=== PATIENT | female | born 1955 | race Caucasian/White ===

== ENCOUNTER → 2024-02-16 07:44 | Outpatient (REF) | payer MEDICARE, OTHER, SELFPAY | LOC: HWRAD 07:44 | PROVIDERS: ATTENDING PHYSICIAN Family Medicine | DX: M81.0 Age-related osteoporosis without current pathological fracture (principal) | CPT/HCPCS: 77080 ==

== ENCOUNTER → 2024-07-29 06:38 | Outpatient (REF) | payer MEDICARE, OTHER, SELFPAY | LOC: HWRAD 06:38 | PROVIDERS: ATTENDING PHYSICIAN Family Medicine | DX: E04.1 Nontoxic single thyroid nodule (principal) | CPT/HCPCS: 76536 ==

== ENCOUNTER → 2024-11-03 13:50 | Outpatient (REF) | payer MEDICARE, OTHER, SELFPAY | LOC: WDC 13:50 | PROVIDERS: ATTENDING PHYSICIAN Family Medicine | DX: Z12.31 Encounter for screening mammogram for malignant neoplasm of breast (principal) | CPT/HCPCS: 77063; 77067 ==

== ENCOUNTER 2025-01-04 17:47 | Inpatient (IN) | payer MEDICARE, OTHER, SELFPAY ==
[2025-01-04] VITALS (8 sets, daily range): BP systolic 111–146; BP diastolic 53–92; BMI 23.4
--- NOTE | 2025-01-04 12:49 | EDRN ---
two pillows propped up underneath the pts left leg, the pt states that this helps her pain, awaiting for the provider to see the pt
--- NOTE | 2025-01-04 13:25 | ED.GENMED ---
History of Present Illness
General
Chief Complaint: Fall
Time Seen by Provider: 01/04/25 12:46
History of Present Illness
History of Present Illness:
69-year-old female with history of hypertension presenting to the emergency department after a fall. Patient reports she was unloading groceries into her driveway and slipped on the pavement. She landed on her left hip with subsequent pain. She
has since been unable to bear weight. Denies head injury or loss of consciousness. Denies any additional injuries from the fall. She is not on any blood thinners. She did not have any medications for pain prior to arrival. Denies any
presyncopal symptoms such as chest pain, difficulty breathing, lightheadedness. Denies additional acute medical complaints
Phy Exam
Physical Exam
Physical Exam:
General: Well-appearing, no clinical signs of dehydration, nontoxic and in no acute distress
HEENT: protecting airway
Neck: appears supple, no midline cervical tenderness
CV: Normal heart rate, regular rhythm
Resp: No accessory muscle use, no increased work of breathing, lungs clear to auscultation bilaterally
Abd: Soft and non-distended, no tenderness to palpation
Extremities: No deformities, tenderness to the left hip joint posteriorly. Limited range of motion secondary to pain. Distal sensation and pulses intact
Neuro: alert, no focal neurologic deficit
: deferred
Rectal: deferred
Psych: Normal affect
Skin: Intact
Course
Orders/Labs/Results
Orders:
Orders
01/04/25 13:23
Hip, Left 2-3 Views [CR Hip - LT w/wo Pel 2-3 Vw*] Urgent
Comment:
Reason For Exam: fall, pain
Include a pelvis x-ray?: Yes
01/04/25 13:25
Ketorolac [Toradol] 15 mg IV NOW STA
01/04/25 14:46
CT Pelvis W/o Iv Contrast Urgent
Comment:
Reason For Exam: suspected L-hip fx
Vital Signs
Initial and Last Documented VS:
Initial Vital Signs
Resp
16
01/04/25 12:39
Last Documented Vital Signs
Temp Pulse Resp BP Pulse Ox
98.2 F 69 20 111/92 96
01/04/25 15:53 01/04/25 15:53 01/04/25 15:53 01/04/25 15:53 01/04/25 15:53
MDM/Problems Addressed
MDM/Problems Addressed:
69-year-old female presenting to the emergency department after a fall in her driveway, landing on her left hip with subsequent pain. Vital signs are normal.
On exam, patient is resting comfortably, pain currently controlled. Generalized tenderness to left hip joint without significant deformity or swelling. Distal sensation and pulses intact without concern for neurovascular compromise. Suspect
possible fracture with lower suspicion for dislocation. Will plan for x-ray imaging. No additional findings of traumatic injuries on exam. Patient hemodynamically stable
16:00-x-ray and CT obtained, consistent with a nondisplaced intratrochanteric fracture. Plan for admission. Orthopedics made aware
*Critical Care Note
Total Time (30-74mins, 75-104mins- exclusive of procedures): Not Applicable
ED Attending Note
-
Portions of this chart may have been created with voice recognition software.� Occasional wrong word or��sound alike� substitutions may have occurred due to the inherent limitations of voice recognition software.
Discharge Plan
Departure
Prescriptions:
No Action
multivitamin 1 EACH tablet
1 ea PO DAILY
Referrals:
Fely Winston PA [Family Provider] -
Interventions
Interventions:
*Risk Screen - Suicide Last Done: 01/04/25 12:39
*General Assessment Last Done: 01/04/25 12:39
*Neglect/Abuse Screening Last Done: 01/04/25 12:39
ED- Fall Risk Assessment Last Done: 01/04/25 12:48
*ED COVID-19 Vaccine History Last Done: 01/04/25 12:48
ED-Musculoskeletal Assessment Last Done: 01/04/25 12:48
ED- Neurological Assessment Last Done: 01/04/25 12:48
ED-Skin Assessment Last Done: 01/04/25 12:48
Discharge Date and Time
Print Language: ANGUILLAN
[2025-01-04] MEDS: TORADOL 15 MG IV (13:28)
[2025-01-04] MEDS: MORPHINE SULFATE 2 MG IV ×2 (16:29→21:38)
[2025-01-04 16:48] LABS: % Basophils 0.3 % (0-2); % Eosinophils 0.2 % (0-6); % Immature Granulocytes 0.8 % (0-0.5); % Lymphocytes 5.4 % (20.5-51.1); % Monocytes 4.6 % (1.7-9.3); % Neutrophils 88.7 % (42.2-75.2); Absolute Immature Granulocytes 0.1 10^3/uL (0-0.05); Absolute Lymphocytes 0.9 10^3/uL (1.2-3.4); Absolute Monocytes 0.7 10^3/uL (0.1-0.6); Hematocrit 36.6 % (37.0-47.0); Hemoglobin 11.5 g/dL (12.0-16.0); Mean Corp Hgb Conc. 31.4 g/dL (33.0-37.0); Mean Corpuscular Hgb 18.8 pg (27.0-31.0); Mean Corpuscular Volume 59.8 fL (81.0-99.0); Mean Platelet Volume 9.4 fL (7.4-10.4); Nucleated Red Blood Cells % 0.1 %; Platelet Count 243 10^3/uL (130-400); Red Blood Cell Count 6.12 10^6/uL (4.20-5.40); Red Cell Dist. Width 17.8 % (11.5-14.5); White Blood Cell Count 15.8 10^3/uL (4.8-10.8)
[2025-01-04 16:51] LABS: INR 1.03; PT 13.8 Sec (11.4-14.6)
[2025-01-04 16:52] LABS: APTT 26.7 Sec (23.4-35.0)
--- NOTE | 2025-01-04 16:54 | EDRN ---
surgery currently at the pts bedside
--- NOTE | 2025-01-04 17:04 | CON.ORTHO ---
Consultation - Orthopedics
History
HPI: 69-year-old female presented to the emergency department status post mechanical fall on ice this afternoon with complaints of left hip pain and inability to bear weight. She was subsequently diagnosed with a minimally displaced left
intertrochanteric femur fracture. She was admitted to the hospital service. Orthopedics was consulted for further evaluation and treatment. Patient's accompanied by at bedside. She reports that she slept outside her home on some ice fell
immediate pain inability to bear weight left hip. She reports that she is quite active at baseline does not use any ambulatory aids.
Allergies / Home Medications
Past medical history: Hypertension
Past surgical history: None documented
Family history: Not pertinent
Social history: Non-smoker, lives independently at home with
Allergy/AdvReac Type Severity Reaction Status Date / Time
NKA - No Known Allergies Allergy Unknown Unknown Uncoded 01/04/25 12:38
�Medication �Instructions �Recorded
multivitamin 1 ea PO DAILY 02/24/19
albuterol sulfate 90 mcg/actuation 2 puff inhalation R Q6HPRN PRN 01/04/25
aerosol inhaler sob/wheezing
amlodipine 5 mg tablet 5 mg PO QPM 01/04/25
calcium carbonate 600 mg PO DAILY 01/04/25
carboxymethylcellulose sodium 0.25 1 drp BOTH EYES BID 01/04/25
% eye drops (TheraTears)
escitalopram oxalate 5 mg tablet 5 mg PO DAILY 01/04/25
loratadine 10 mg tablet (Claritin) 10 mg PO DAILY 01/04/25
nebivolol 5 mg tablet (Bystolic) 5 mg PO DAILY 01/04/25
omega 9-ekz-jvx-fish oil 900 1 cap PO DAILY 01/04/25
mg-1,400 mg capsule,delayed release
red yeast rice 600 mg tablet 600 mg PO BID 01/04/25
sodium chloride 5 % eye drops 1 drp BOTH EYES BID 01/04/25
(Vandana 128)
Vital Signs / Lab Results
Temp Pulse Resp BP Pulse Ox
98.2 F 69 20 111/92 96
01/04/25 15:53 01/04/25 15:53 01/04/25 15:53 01/04/25 15:53 01/04/25 15:53
01/04/25 16:33
10 point review systems reviewed and negative unless otherwise stated
General: Pleasant, no acute distress at rest supine in bed
Musculoskeletal left lower extremity
Skin intact, no erythema or ecchymotic staining
Extremity shortened externally rotated
Tenderness palpation over groin or lateral trochanteric flare
No palpable ipsilateral knee effusion
Positive EHL, FHL, ankle dorsiflexion, plantarflexion
Brisk cap refill distally
No other areas of crepitus or tenderness palpation over long bones or joints on tertiary examination
Diagnostic studies
X-rays CT scan left hip reviewed by myself. There is evidence of a minimally displaced left intertrochanteric femur fracture
Assessment / Plan
69-year-old female status post mechanical fall with left intertrochanteric femur fracture. I do long and detailed discussion the patient as well as her regarding diagnosis and treatment options. We discussed both surgical nonsurgical
options. After discussion mutually elected proceed with surgical intervention in the form of left cephalomedullary nail fixation of intertrochanteric femur fracture. We discussed risks benefits and alternatives to surgery. Discussed the usual
expected perioperative postoperative course. After discussion verbal consent was obtained. Written informed consent will be obtained prior to operative intervention
Nonweightbearing left lower extremity
PT OT deferred until postoperative setting
Pain control
Please hold DVT prophylaxis in preparation for or tomorrow
N.p.o. at midnight
Medical management per primary team
Plan: 2 OR tomorrow for operative fixation left intertrochanteric femur fracture pending medical clearance and the OR availability
[2025-01-04 17:15] LABS: AST (SGOT) 31 U/L (14-36); Albumin 4.7 g/dl (3.5-5.0); Alkaline Phosphatase 81 U/L (38-126); Blood Urea Nitrogen 17 mg/dl (7-17); Calcium 9.1 mg/dl (8.4-10.2); Carbon Dioxide 22 mmol/L (22-30); Chloride 101 mmol/L (98-107); Glucose 172 mg/dl (70-99); Sodium 137 mmol/L (135-145); Total Bilirubin 0.7 mg/dl (0.2-1.3); eGFR > 60.00
[2025-01-04 17:25] LABS: ALT (SGPT) 33 U/L (0-35)
--- NOTE | 2025-01-04 17:26 | HPS.HSE ---
Family Physician
-
Family Physician: Fely Winston
Chief Complaint
-
Fall
History of Present Illness
69 y/o F hx of HTN, presents to ER with Fall. She reports unloading groceries while standing on driveway and slipping onto pavement. She landed on her left hip and immediately felt pain. Unable to bear weight on her LLE. No head injury/LOC. No other
complaints. not on thinners.
in ER, found to have L intratrochanteric fracture and Ortho consulted for OR tomorrow.
Medical History
Past Medical History
Past Medical History: Reports Other (HTN, Anxiety)
Past Surgical History: Reports Gynocological
Social History
Tobacco: Non-smoker
Alcohol: None
Drug: None
Personal:
Living: With Family
Family History
Family History: Not pertinent
Allergies / Home Medications
Allergies reflects when Allergies were last updated in [facility].
Home Medications with original date entered in [facility]
Allergy/Medication List:
Allergies
Allergy/AdvReac Type Severity Reaction Status Date / Time
No Known Allergies Allergy Unverified 01/04/25 17:13
Home Medications
multivitamin 1 ea PO DAILY 02/24/19
albuterol sulfate 90 mcg/actuation aerosol inhaler 2 puff inhalation R Q6HPRN PRN sob/wheezing 01/04/25
amlodipine 5 mg tablet 5 mg PO QPM 01/04/25
calcium carbonate 600 mg PO DAILY 01/04/25
carboxymethylcellulose sodium 0.25 % eye drops (TheraTears) 1 drp BOTH EYES BID 01/04/25
escitalopram oxalate 5 mg tablet 5 mg PO DAILY 01/04/25
loratadine 10 mg tablet (Claritin) 10 mg PO DAILY 01/04/25
nebivolol 5 mg tablet (Bystolic) 5 mg PO DAILY 01/04/25
omega 0-qhx-xga-fish oil 900 mg-1,400 mg capsule,delayed release 1 cap PO DAILY 01/04/25
red yeast rice 600 mg tablet 600 mg PO BID 01/04/25
sodium chloride 5 % eye drops (Vandana 128) 1 drp BOTH EYES BID 01/04/25
Review of Systems
-
A 12 point ROS was completed and negative except as noted: Yes
Psych: Reports No Symptoms
Physical Exam
Vital Signs
Vital Signs
Temp Pulse Resp BP Pulse Ox
98.2 F 69 20 111/92 96
01/04/25 15:53 01/04/25 15:53 01/04/25 15:53 01/04/25 15:53 01/04/25 15:53
Physical Exam
General: No Apparent Distress
HEENT: NormoCephalic and Anicteric
Respiratory: Clear; No Wheezes or Rales
Cardiac: S1/S2 and Regular Rhythm
GI: Soft and Non Tender
Musculoskeletal: Other (tenderness to the left hip joint posteriorly. Limited range of motion secondary to pain. Distal sensation and pulses intact)
Neuro: AO x 3
Hematologic/Lymphatic: No Lymphadenopathy
Psych: Calm
Laboratory Results
-
01/04/25 16:33
01/04/25 16:33
Laboratory Results
PT 13.8 Sec (11.4-14.6) 01/04/25 16:33
INR 1.03 01/04/25 16:33
APTT 26.7 Sec (23.4-35.0) 01/04/25 16:33
Total Bilirubin 0.7 mg/dl (0.2-1.3) 01/04/25 16:33
AST 31 U/L (14-36) 01/04/25 16:33
ALT 33 U/L (0-35) 01/04/25 16:33
Alkaline Phosphatase 81 U/L (38-126) 01/04/25 16:33
Data Reviewed
-
Diagnostic Radiology: Report Reviewed by me
Lab Data: Labs Reviewed by me
Impression/Plan
-
Assessment:
Mechanical fall with traumatic L femur fracture
- CT: acute nondisplaced oblique intertrochanteric fracture of the left femur
- pain control
- Orthopedics consulted; OR tomorrow
Essential HTN
- continue Bystolic AM and continue Norvasc PM
Anxiety
- Lexapro
DVT ppx: SCDs
Code: Full
--- NOTE | 2025-01-04 18:31 | EDRN ---
new linens and draw sheet placed under the pt x2 person assist, the pt stated that she needed to urinate and this RN educated the pt on the use of the pure wick and the pt agreed to use it, pure wick in place
--- NOTE | 2025-01-04 19:56 | PTCARENOTE ---
19:45 pt rec'vd from ER left hip fx. Pt vs, wt taken, c/o left pain with movement, declining pain meds for now. oriented to unit .
[2025-01-04 20:37] LABS: Iron 44 ug/dl (37-170)
[2025-01-04 20:47] LABS: Percent Saturation 14 % (20-50); Total Iron Binding Capacity 313 ug/dl (265-497)
[2025-01-04] MEDS: NORVASC 5 MG PO (21:37)
[2025-01-04] MEDS: REFRESH CELLUVISC GEL 1 DROPS BOTH EYES (21:39)
[2025-01-04] MEDS: MURO 128/ADSORBONAC 5% EYE DROPS 1 DROP BOTH EYES (21:39)
[2025-01-04] MEDS: TYLENOL 650 MG PO (21:40)
[2025-01-04 23:25] LABS: Folate > 20.0 ng/ml (2.76-20); Vitamin B12 526 pg/ml (239-931)
[2025-01-05] VITALS (11 sets, daily range): BP systolic 120–146; BP diastolic 60–76
[2025-01-05] MEDS: TYLENOL 650 MG PO ×5 (00:31→23:49)
[2025-01-05] MEDS: NSS 1000 IV ×2 (00:31→18:30)
[2025-01-05] MEDS: MORPHINE SULFATE 2 MG IV ×2 (04:01→11:18)
[2025-01-05 06:44] LABS: % Basophils 0.2 % (0-2); % Eosinophils 0.1 % (0-6); % Immature Granulocytes 0.5 % (0-0.5); % Lymphocytes 15.7 % (20.5-51.1); % Monocytes 7.2 % (1.7-9.3); % Neutrophils 76.3 % (42.2-75.2); Absolute Immature Granulocytes 0.1 10^3/uL (0-0.05); Absolute Lymphocytes 1.5 10^3/uL (1.2-3.4); Absolute Monocytes 0.7 10^3/uL (0.1-0.6); Absolute Neutrophils 7.2 10^3/uL (1.4-6.5); Hematocrit 37.5 % (37.0-47.0); Hemoglobin 11.5 g/dL (12.0-16.0); Mean Corp Hgb Conc. 30.7 g/dL (33.0-37.0); Mean Corpuscular Hgb 18.5 pg (27.0-31.0); Mean Corpuscular Volume 60.4 fL (81.0-99.0); Mean Platelet Volume 10.6 fL (7.4-10.4); Nucleated Red Blood Cells % 0.2 %; Platelet Count 253 10^3/uL (130-400); Red Blood Cell Count 6.21 10^6/uL (4.20-5.40); Red Cell Dist. Width 18.2 % (11.5-14.5); White Blood Cell Count 9.5 10^3/uL (4.8-10.8)
[2025-01-05 06:45] LABS: Blood Urea Nitrogen 12 mg/dl (7-17); Calcium 8.9 mg/dl (8.4-10.2); Carbon Dioxide 25 mmol/L (22-30); Chloride 102 mmol/L (98-107); Estimated Creatinine Clearance 84 ml/min; Glucose 114 mg/dl (70-99); Sodium 138 mmol/L (135-145); eGFR > 60.00
[2025-01-05] MEDS: MURO 128/ADSORBONAC 5% EYE DROPS 1 DROP BOTH EYES ×2 (08:06→20:39)
[2025-01-05] MEDS: REFRESH CELLUVISC GEL 1 DROPS BOTH EYES ×2 (08:06→20:39)
[2025-01-05] MEDS: BYSTOLIC 5 MG PO (08:06)
[2025-01-05] MEDS: CLARITIN 10 MG PO (08:08)
[2025-01-05] MEDS: THERAGRAN 1 TABLET PO (08:08)
[2025-01-05] MEDS: LEXAPRO 5 MG PO (08:08)
--- NOTE | 2025-01-05 11:03 | W.PN.HOSP.TC ---
Today's Communication/Plan
-
OR today with Orthopedics
Assessment / Plan
Assessment / Plan
Assessment:
Mechanical fall with traumatic L femur fracture
- CT: acute nondisplaced oblique intertrochanteric fracture of the left femur
- pain control
- Orthopedics consulted; OR today
- EKG: NSR. low risk patient for low to intermediate risk procedure. no additional testing indicated.
Essential HTN
- continue Bystolic AM and continue Norvasc PM
Anxiety
- Lexapro
DVT ppx: SCDs
Code: Full
Anticipated Discharge: > 48 hours
Subjective/Interval History
-
Date of Service: January 05, 2025
feels well no complaints
Objective Data
-
Labs:
Laboratory Results
01/05/25
05:27
WBC 9.5
Hgb 11.5 L
Hct 37.5
Plt Count 253
Sodium 138
Potassium 4.0
Chloride 102
Carbon Dioxide 25
BUN 12
Creatinine 0.5 L
Glucose 114 H
Calcium 8.9
Vital Signs:
Vital Signs
Temp Pulse Resp BP Pulse Ox
98.4 F 70 16 144/76 94
01/05/25 07:20 01/05/25 07:20 01/05/25 07:20 01/05/25 07:20 01/05/25 07:20
I&O
01/04/25 01/05/25 01/06/25
06:59 06:59 06:59
Intake Total 960 / 960
Output Total 400 / 400
Balance 560 / 560
Physical Exam
-
General: No Apparent Distress
HEENT: Normocephalic and Atraumatic
Respiratory: Negative Wheezes
Cardiac: Regular Rhythm and S1/S2
GI: Soft and Nontender
Neuro: AO x 3
Hematologic / Lymphatic: No Lymphadenopathy
Psych: Calm
Data Reviewed
-
Total Time Spent with Patient (in minutes): 41
Labs: Labs Reviewed by me
--- NOTE | 2025-01-05 15:43 | CM ---
Met with pt at bedside
Pt reports she lives with her in a 2 story home; 2 steps to enter, FF set-up
Independent at baseline, retired, drives
DME - none
SNF/HH - no past hx
PCP - Fely Winston
Pharm - [facility]
For OR today. Discussed poss dispo needs
Plan - TBD based on PT/OT recs post-op
[2025-01-05] MEDS: TYLENOL PO ×2 (16:09→20:49)
--- NOTE | 2025-01-05 17:37 | OR.RPT ---
Operative Report
Operative Report
Anesthesia Type:
General
Operative Indications:
Left peritrochanteric femur fracture
Operative Findings :
Same predominately basicervical nature, nondisplaced
Complications:
None
Implants:
Wes short gamma nail 125 degrees x 10 mm, 95 mm cephalomedullary lag screw, 32.5 x 5 mm distal interlocking screw
Procedure and Technique:
Insertion left short cephalomedullary nail
INDICATIONS FOR PROCEDURE:
69-year-old patient presented status post mechanical fall. They were subsequently diagnosed with a peritrochanteric femur fracture. Orthopedics was consulted for further evaluation and treatment. After discussion with the patient and family,
the decision was made to proceed with operative intervention in the form of short cephalomedullary nail. A long discussion was had regarding risks and benefits of procedure. Risks include but are not limited to infection, blood loss, damage to
surrounding structures, persistent pain, loss of function, need for repeat surgery, implant cut out, periprosthetic fracture, DVT/PE and adverse risks of anesthesia. Benefits include early mobilization and fracture stabilization. After discussion
written informed consent was obtained.
OPERATIVE PROCEDURE:
The patient was seen and identified in the preoperative holding area. The operative extremity was marked and all questions were addressed with the patient. Patient was taken to the operating room and provided anesthesia by the anesthesia team.
They were placed supine on a radiolucent fracture table. The nonoperative extremity was placed in a scissored position and well padded to the contralateral post of the fracture table. Operative extremity was placed in a well-padded fracture boot.
Biplanar fluoroscopy confirmed appropriate reduction after axial traction, adduction and slight internal rotation of the operative extremity. Operative extremity was then prepped and draped in normal sterile fashion. Timeout was performed again
identifying the operative extremity correctly. Preoperative antibiotics were addressed.
A small incision was made several fingerbreadths proximal to the greater trochanter. Sharp dissection was carried through skin and subcutaneous tissues and deep fascial layers. Guidepin was then inserted under biplanar fluoroscopic guidance
through the tip of the greater trochanter in accordance with the implant's operative technique. This was inserted to a depth just distal to the lesser trochanter. Proximal opening reamer was then utilized. A short cephalomedullary nail was then
inserted to the appropriate depth. Trocar was then inserted through the aiming arm. Sharp dissection was then carried through skin and subcutaneous tissues as well as deep fascial layers for an additional stab incision for the cephalomedullary
screw. Guidewire was inserted through the trocar into the femoral neck and head. Appropriate position was confirmed under biplanar fluoroscopy. Attention was made to minimize the tip apex distance. Measurements were obtained for the
cephalomedullary screw. Cannulated drill was then utilized to the appropriate depth followed by the insertion of cannulated cephalomedullary screw. Appropriate final position of the screw within the confines of the femoral neck and head was
confirmed again on biplanar fluoroscopy. There was noted to be slightly anterior position of the soft medullary lag screw. Given the patient's young age nondisplaced nature of the fracture and good purchase, decision was made to except the
position. Additional trocar was then inserted through the aiming arm for the distal interlocking screw. Sharp dissection was carried through skin, subcutaneous tissues and deep fascial layers. Appropriate length interlocking screw was then
drilled and inserted. Final appropriate positioning was confirmed again on biplanar fluoroscopy. Satisfied with the extent of surgery, wounds were copiously irrigated with normal saline solution and closed in a layered fashion utilizing 0 Vicryl
for deep fascial layer, 2-0 Vicryl for subcu cutaneous layer and magda for skin. Sterile dressings were applied. Anesthesia was reversed and patient was taken to the operating room in a stable condition.
Disposition:
PACU stable condition
[2025-01-05] MEDS: DILAUDID 0.5 MG IV (18:16)
--- NOTE | 2025-01-05 20:00 | PTCARENOTE ---
Pt arrived 1900 in bed from PACU. VSS. 4Lo2 NC. IVF infusing. bed locked and in lowest position. call rankin with in reach.
[2025-01-05] MEDS: ZOFRAN 4 MG IV (20:34)
[2025-01-05] MEDS: NORVASC 5 MG PO (20:38)
[2025-01-05] MEDS: COLACE PO (20:49)
[2025-01-05] MEDS: ANCEF 5 IV (23:49)
[2025-01-06 00:20] LABS: Glucose - Point of Care 201 mg/dl (70-99)
[2025-01-06] MEDS: MORPHINE SULFATE 2 MG IV (00:30)
[2025-01-06 03:40] VITALS: BP 118/64
[2025-01-06] MEDS: NSS 1000 IV (05:24)
[2025-01-06] MEDS: TYLENOL 650 MG PO ×3 (05:25→12:45)
[2025-01-06 06:33] LABS: % Basophils 0.2 % (0-2); % Immature Granulocytes 0.6 % (0-0.5); % Lymphocytes 8.3 % (20.5-51.1); % Monocytes 5.5 % (1.7-9.3); % Neutrophils 85.4 % (42.2-75.2); Absolute Immature Granulocytes 0.1 10^3/uL (0-0.05); Absolute Lymphocytes 0.7 10^3/uL (1.2-3.4); Absolute Monocytes 0.5 10^3/uL (0.1-0.6); Absolute Neutrophils 7.3 10^3/uL (1.4-6.5); Hematocrit 33.1 % (37.0-47.0); Hemoglobin 10.2 g/dL (12.0-16.0); Mean Corp Hgb Conc. 30.8 g/dL (33.0-37.0); Mean Corpuscular Hgb 18.8 pg (27.0-31.0); Mean Corpuscular Volume 61.1 fL (81.0-99.0); Nucleated Red Blood Cells % 0.2 %; Platelet Count 238 10^3/uL (130-400); Red Blood Cell Count 5.42 10^6/uL (4.20-5.40); Red Cell Dist. Width 17.2 % (11.5-14.5); White Blood Cell Count 8.6 10^3/uL (4.8-10.8)
[2025-01-06 06:56] LABS: Blood Urea Nitrogen 15 mg/dl (7-17); Calcium 8.2 mg/dl (8.4-10.2); Carbon Dioxide 20 mmol/L (22-30); Chloride 104 mmol/L (98-107); Estimated Creatinine Clearance 84 ml/min; Glucose 186 mg/dl (70-99); Potassium 4.2 mmol/L (3.5-5.1); Sodium 138 mmol/L (135-145); eGFR > 60.00
--- NOTE | 2025-01-06 07:47 | W.PN.ORTHO ---
Today's Communication / Plan
-
69-year-old female postop day 1 status post left short cephalomedullary nail for peritrochanteric femur fracture doing well
Weightbearing as tolerated left lower extremity
PT OT
Pain control
DVT prophylaxis: Recommend Lovenox renally dosed x 28 days
Medical management per primary team
Plan to follow-up outpatient in 2 to 3 weeks for repeat evaluation
Subjective
.
.:
Patient resting comfortably in bed. She reports that she was able to get to the bathroom about 4 times overnight and ambulate without too much difficulty.
Vital Signs and Labs
.
Vital Signs and Labs:
Lab Results
01/06/25 04:37
01/06/25 04:37
Temp Pulse Resp BP Pulse Ox
98.0 F 79 16 118/64 90
01/06/25 03:40 01/06/25 03:40 01/06/25 03:40 01/06/25 03:40 01/06/25 03:40
PT 13.8 Sec (11.4-14.6) 01/04/25 16:33
INR 1.03 01/04/25 16:33
Physical Exam
-
Musculoskeletal left lower extremity
Minimal bloody drainage on dressings
No palpable ipsilateral knee effusion
Mild to moderate swelling thigh
Positive EHL, FHL, ankle dorsiflexion, plantarflexion
Brisk cap refill
[2025-01-06 07:55] VITALS: BP 126/60
[2025-01-06] MEDS: COLACE 100 MG PO (08:04)
[2025-01-06] MEDS: THERAGRAN 1 TABLET PO (08:04)
[2025-01-06] MEDS: BYSTOLIC 5 MG PO (08:04)
[2025-01-06] MEDS: LEXAPRO 5 MG PO (08:04)
[2025-01-06] MEDS: REFRESH CELLUVISC GEL 1 DROPS BOTH EYES (08:05)
[2025-01-06] MEDS: ROXICODONE 5 MG PO ×2 (08:05→13:21)
[2025-01-06] MEDS: CLARITIN 10 MG PO (08:05)
[2025-01-06] MEDS: LOVENOX 40 MG SC (08:06)
[2025-01-06] MEDS: ANCEF 5 IV (08:07)
[2025-01-06] MEDS: MURO 128/ADSORBONAC 5% EYE DROPS 1 DROP BOTH EYES (08:10)
[2025-01-06 11:30] VITALS: BP 133/61
[2025-01-06 11:45] VITALS: BP 140/47; O2SAT 94
[2025-01-06 12:25] VITALS: BP 140/67; PULSE 75; O2SAT 94
--- NOTE | 2025-01-06 12:53 | W.PN.HOSP.TC ---
Today's Communication/Plan
-
dc home VN
Assessment / Plan
Assessment / Plan
Assessment:
Mechanical fall with traumatic L femur fracture
- CT: acute nondisplaced oblique intertrochanteric fracture of the left femur
- s/p status post left short cephalomedullary nail for peritrochanteric femur fracture 01/05
- OP Ortho f/u
- D/w Dr. Kidd ok for ASA 81mg BID at discharge
- pain control prn (Oxy and Tylenol prn)
Essential HTN
- continue Bystolic AM and continue Norvasc PM
Anxiety
- Lexapro
DVT ppx: SCDs
Code: Full
More than 30 minutes spent in discharge including
Final examination of the patient
Summarizing hospital stay
Instructions for continuing care to all relevant caregivers
Preparation of discharge records, prescriptions, and referral forms
Total time spent (in minutes): 41
Anticipated Discharge: Today
Subjective/Interval History
-
Date of Service: January 06, 2025
resting comfortable no complaints
did well with therapy for home VN dc
Objective Data
-
Labs:
Laboratory Results
01/06/25
04:37
WBC 8.6
Hgb 10.2 L
Hct 33.1 L
Plt Count 238
Sodium 138
Potassium 4.2
Chloride 104
Carbon Dioxide 20 L
BUN 15
Creatinine 0.5 L
Glucose 186 H
Calcium 8.2 L
Vital Signs:
Vital Signs
Temp Pulse Resp BP Pulse Ox
98.5 F 72 16 133/61 97
01/06/25 11:30 01/06/25 11:30 01/06/25 11:30 01/06/25 11:30 01/06/25 11:30
I&O
01/05/25 01/06/25 01/07/25
06:59 06:59 06:59
Intake Total 960 / 960 1679
Output Total 400 / 400
Balance 560 / 560 1679
Physical Exam
-
General: No Apparent Distress
HEENT: Normocephalic and Atraumatic
Respiratory: Negative Wheezes
Cardiac: Regular Rhythm and S1/S2
GI: Soft and Nontender
Musculoskeletal: No Edema
Neuro: AO x 3
Hematologic / Lymphatic: No Lymphadenopathy
Psych: Calm
Data Reviewed
-
Total Time Spent with Patient (in minutes): 42
Labs: Labs Reviewed by me
--- NOTE | 2025-01-06 13:04 | W.DS.TRANS ---
DC Summary - Catcher Helper
-
Discharge Instructions:
Discharge Diagnosis/Procedures traumatic L femur fracture s/p status post left
short cephalo-medullary nail for
peritrochanteric femur fracture 01/05
Diet Regular
Activity As tolerated
Additional Activity Weightbearing as tolerated left lower extremity
Bathing Restrictions None
Other Services PT,OT
Instructions:
Stand-Alone Forms:
Changes to Home Medications: No
Discharge Medications:
DC Medications w/original date entered in [facility]
multivitamin 1 ea PO DAILY 02/24/19
albuterol sulfate 90 mcg/actuation aerosol inhaler 2 puff inhalation R Q6HPRN PRN sob/wheezing 01/04/25
amlodipine 5 mg tablet 5 mg PO QPM 01/04/25
calcium carbonate 600 mg PO DAILY 01/04/25
carboxymethylcellulose sodium 0.25 % eye drops (TheraTears) 1 drp BOTH EYES BID 01/04/25
escitalopram oxalate 5 mg tablet 5 mg PO DAILY 01/04/25
loratadine 10 mg tablet (Claritin) 10 mg PO DAILY 01/04/25
nebivolol 5 mg tablet (Bystolic) 5 mg PO DAILY 01/04/25
omega 1-gln-gkn-fish oil 900 mg-1,400 mg capsule,delayed release 1 cap PO DAILY 01/04/25
red yeast rice 600 mg tablet 600 mg PO BID 01/04/25
sodium chloride 5 % eye drops (Vandana 128) 1 drp BOTH EYES BID 01/04/25
acetaminophen 325 mg tablet 650 mg (2 x 325 mg) PO Q4HPRN PRN mild pain/MIR/temp> 100.4F #100 tabs 01/06/25
oxycodone 5 mg tablet 5 mg PO Q4HPRN PRN moderate pain #10 tabs 01/06/25
Home Medication Changes
Pending Results: No
Total time spent discharging patient (in min): 41
--- NOTE | 2025-01-06 13:43 | CM ---
Met with pt
PT/OT - recs HH - discussed with pt - agreed to HH - no preference
TT sent to [facility] Liaison for HH needs
PT/OT to dispense rolling walker/commode
Has ride home with
Plan - [facility] with [facility]
--- NOTE | 2025-01-06 13:44 | VNURNOTE ---
Home Health Liaison met with patient at bedside to discuss [facility] nurse/therapy, visits, schedule and homebound status. She is agreeable and understands that visits at home will be 2-3 x per week to assess and teach medical management. [facility] liaison
provided [facility] contact information. Patient rec'ed commode and rolling walker to take home while liaison in room. Patient is aware that [facility] will contact them for start of care in 1-2 days after discharge from . [facility] referral completed in [facility].
== END 2025-01-06 15:28 | disposition home health service (06) | DRG 482 ==
LOC: 2 SOUTH 17:47
PROVIDERS: ADMITTING PHYSICIAN Internal Medicine; CONSULT PHYSICIAN Orthopaedic Surgery; EMERGENCY PHYSICIAN Student in an Organized Health Care Education/Training Program; FAMILY PHYSICIAN Family Medicine
PROC: 0QS736Z Reposition Left Upper Femur with Intramedullary Internal Fixation Device, Percutaneous Approach (ICD-10-PCS; 2025-01-05)
DX: S72.145A Nondisplaced intertrochanteric fracture of left femur, initial encounter for closed fracture (principal); I10 Essential (primary) hypertension; F41.9 Anxiety disorder, unspecified; W00.0XXA Fall on same level due to ice and snow, initial encounter; Z79.899 Other long term (current) drug therapy
CPT/HCPCS: 72192; 73502; 73560; 76000; 80048; 80053; 82607; 82728; 82746; 82962; 83540; 83550; 85025; 85610; 85730; 86850; 86900; 86901; 93005; 96374; 96375; 97162; 97166; 97535; 99285; C1713; C1769

== ENCOUNTER → 2025-06-28 06:44 | Outpatient (REF) | payer MEDICARE, OTHER, SELFPAY | LOC: HWRAD 06:44 | PROVIDERS: ATTENDING PHYSICIAN Family Medicine | DX: E04.1 Nontoxic single thyroid nodule (principal) | CPT/HCPCS: 76536 ==

== ENCOUNTER → 2025-11-08 07:58 | Outpatient (REF) | payer MEDICARE, OTHER, SELFPAY | LOC: WDC 07:58 | PROVIDERS: ATTENDING PHYSICIAN Student in an Organized Health Care Education/Training Program; FAMILY PHYSICIAN Family Medicine | DX: Z12.31 Encounter for screening mammogram for malignant neoplasm of breast (principal) | CPT/HCPCS: 77063; 77067 ==